=== PATIENT | female | born 1960 | race African-American/Black ===

== ENCOUNTER 2018-12-25 19:46 | Emergency (ER) | payer BC, OTHER ==
[2018-12-25 23:51] LABS: Urine Blood 2+ (NEG); Urine Glucose NEGATIVE (NEG); Urine Protein 1+ (NEG); Urine Specific Gravity >1.030 (1.005-1.030)
--- NOTE | 2018-12-26 00:23 | ER ---
Nurse's Notes [facility] Name: Gaby Avila Age: 58 yrs Sex: Female : 1960 Arrival Date: 12/25/2018 Time: 19:56 Bed 8 Private MD: Diagnosis: Influenza-like illness Presentation: 12/25 20:44 Presenting complaint: Patient states: Pt reports she is having, body aches, chills, ea runny nose and headache that started Sunday and progressively got worse. Transition of care: patient was not received from another setting of care. Onset of symptoms. Risk Assessment: Do you want to hurt yourself or someone else? Patient reports no desire to harm self or others. Initial Sepsis Screen: Does the patient meet any 2 criteria?. Initial Sepsis Screen: Does the patient have a suspected source of infection? No. Patient's initial sepsis screen is negative. Care prior to arrival: Theraflu and emergen C in the AM. 20:44 Method Of Arrival: Ambulatory ea 20:44 Acuity: ZAKIYA 4 ea Triage Assessment: 20:52 General: Appears uncomfortable, Behavior is calm, cooperative, appropriate for age. ea Pain: Complains of pain in body aches. Neuro: Level of Consciousness is awake, alert, obeys commands, Oriented to person, place, time, situation. Cardiovascular: Patient's skin is warm and dry. Respiratory: Airway is patent Respiratory effort is even, unlabored, Respiratory pattern is regular, symmetrical. Historical: - Allergies: 20:51 Codeine; ea 20:51 Heparin; ea 20:51 Hydrocodone-Acetaminophen; ea 20:51 Iodine; ea 20:51 PENICILLINS; ea 20:51 Soma; ea 20:51 Sulfa (Sulfonamide Antibiotics); ea 20:51 Talwin; ea 20:51 hydralazine; ea - Home Meds: 20:51 amlodipine 10 mg oral tab 1 tab once daily [Active]; quetiapine 200 mg oral tab ea [Active]; bumetanide 0.5 mg Oral tab 1 tab once daily [Active]; Xarelto oral oral [Active]; Belviq oral oral [Active]; montelukast 10 mg Oral tab 1 tab once daily [Active]; amlodipine oral [Active]; doxazosin 8 mg Oral tab 1 tab once daily [Active]; sotalol 80 mg Oral tab 1 tab 2 times per day [Active]; gabapentin 300 mg Oral cap 1 cap [Active]; - PMHx: 20:51 TIA; stroke; ADD/ADHD; carpal tunnel; ea - Immunization history:: Adult Immunizations up to date. - Social history:: Smoking status: Patient/guardian denies using tobacco. - Ebola Screening: : No symptoms or risks identified at this time. Screenin:12 Abuse screen: Denies threats or abuse. Nutritional screening: No deficits noted. tl2 Tuberculosis screening: No symptoms or risk factors identified. Fall Risk None identified. Assessment: 21:10 General: Appears in no apparent distress. comfortable, Behavior is calm, cooperative, tl2 appropriate for age. General: Reports chills for feeling ill for. Pain: Complains of pain in body aches. Neuro: Level of Consciousness is awake, alert, obeys commands, Oriented to person, place, time, situation. Cardiovascular: Denies chest pain. Respiratory: Reports cough that is Airway is patent Respiratory effort is even, unlabored, Respiratory pattern is regular, symmetrical. GI: No signs and/or symptoms were reported involving the gastrointestinal system. Derm: Skin is pink, warm \T\ dry. 22:10 Reassessment: Patient appears in no apparent distress at this time. Patient and/or tl2 family updated on plan of care and expected duration. Pain level reassessed. Patient is alert, oriented x 3, equal unlabored respirations, skin warm/dry/pink. 23:30 Reassessment: Patient appears in no apparent distress at this time. awaiting results tl2 and further orders. 12/26 00:45 Reassessment: Patient appears in no apparent distress at this time. Patient is alert, rr5 oriented x 3, equal unlabored respirations, skin warm/dry/pink. discharge instruction given and explained without complaints made. Vital Signs: 12/25 20:52 BP 162 / 96; Pulse 90; Resp 19; Temp 98.1; Pulse Ox 97% on R/A; Weight 117.03 kg; ea Height 5 ft. 4 in. (162.56 cm); 21:10 BP 137 / 87; Pulse 87; Resp 18; Pulse Ox 97% on R/A; tl2 22:14 BP 141 / 96; Pulse 77; Resp 18; Pulse Ox 96% on R/A; tl2 23:30 BP 129 / 69; Pulse 83; Resp 18; Pulse Ox 94% on R/A; tl2 12/26 00:37 BP 124 / 101; Pulse 97; Resp 18; Temp 99.1(O); Pulse Ox 97% on R/A; tl2 12/25 20:52 Body Mass Index 44.29 (117.03 kg, 162.56 cm) ED Course: 12/25 19:56 Patient arrived in ED. ds1 20:47 Triage completed. ea 21:12 Patient has correct armband on for positive identification. Bed in low position. Call tl2 light in reach. Side rails up X 1. 21:13 Arm band placed on right wrist. tl2 21:39 Igor Lewis MD is Attending Physician. ps1 23:20 Jason De León, RN is Primary Nurse. rr5 23:30 X-ray completed. Portable x-ray completed in exam room. Patient tolerated procedure kw well. 23:31 CXR XRAY In Process Unspecified. EDNJ 12/26 00:50 No provider procedures requiring assistance completed. Patient did not have IV access rr5 during this emergency room visit. Administered Medications: 00:37 Drug: TORadol 30 mg Route: IM; Site: left deltoid; tl2 00:50 Follow up: Response: No adverse reaction rr5 Outcome: 00:20 Discharge ordered by . ps1 00:50 Discharged to home ambulatory. rr5 00:50 Condition: stable 00:50 Discharge instructions given to patient, Instructed on discharge instructions, follow up and referral plans. medication usage, Demonstrated understanding of instructions, follow-up care, medications, Prescriptions given X 3. 00:50 Patient left the ED. rr5 Signatures: Dispatcher [employer] [facility] Tiffanie Thomason ds1 Amy Mcintyre Taylor RN RN tl2 Joanie Clarke RN RN ea Singer, Phillip, MD MD ps1 Jason De León, GARCÍA RN rr5
[2018-12-26] MEDS ORDERED: KETOROLAC 30 MG/ML INJ ONE (00:29)
[2018-12-26 00:39] LABS: Urine Bacteria 20-50 /HPF (<20); Urine Culture Reflex Order REFLEXED; Urine RBC <5 /HPF (NONE SEEN)
[2018-12-26 01:30] VITALS: BP 124/101; TEMP 99.1; O2SAT 97
--- NOTE | 2018-12-26 08:20 | RAD REPORT ---
EXAM DESCRIPTION: RAD - Chest Single View - 12/25/2018 11:33 pm CLINICAL HISTORY: Cough, flu-like symptoms COMPARISON: June 2017 TECHNIQUE: AP portable chest image was obtained 2331 hours . FINDINGS: No peripheral mass or consolidation. Lung markings are not substantially different from pr ior imaging. Slight hazy opacification lateral left base is favored to be soft tissue and portable im aging artifact rather than infiltrate. Failure and volume overload are not suspected. Heart and vasculature are normal. No measurable pleural effusion and no pneumothorax. No acute bony abnormality seen. No acute aortic findings suspected. IMPRESSION: No acute cardiopulmonary process. Slight hazy opacification lateral left base is favored to be soft tissue and portable imaging artifac t.
--- NOTE | 2019-01-04 18:56 | EDPHYS ---
Physician Documentation [facility] Name: Gaby Avila Age: 58 yrs Sex: Female : 1960 Arrival Date: 12/25/2018 Time: 19:56 Bed 8 Private MD: ED Physician Igor Lewis Historical: - Allergies: 12/25 20:51 Codeine; ea 20:51 Heparin; ea 20:51 Hydrocodone-Acetaminophen; ea 20:51 Iodine; ea 20:51 PENICILLINS; ea 20:51 Soma; ea 20:51 Sulfa (Sulfonamide Antibiotics); ea 20:51 Talwin; ea 20:51 hydralazine; ea - Home Meds: 20:51 amlodipine 10 mg oral tab 1 tab once daily [Active]; quetiapine 200 mg oral tab ea [Active]; bumetanide 0.5 mg Oral tab 1 tab once daily [Active]; Xarelto oral oral [Active]; Belviq oral oral [Active]; montelukast 10 mg Oral tab 1 tab once daily [Active]; amlodipine oral [Active]; doxazosin 8 mg Oral tab 1 tab once daily [Active]; sotalol 80 mg Oral tab 1 tab 2 times per day [Active]; gabapentin 300 mg Oral cap 1 cap [Active]; - PMHx: 20:51 TIA; stroke; ADD/ADHD; carpal tunnel; ea - Immunization history:: Adult Immunizations up to date. - Social history:: Smoking status: Patient/guardian denies using tobacco. - Ebola Screening: : No symptoms or risks identified at this time. Vital Signs: 20:52 BP 162 / 96; Pulse 90; Resp 19; Temp 98.1; Pulse Ox 97% on R/A; Weight 117.03 kg; ea Height 5 ft. 4 in. (162.56 cm); 21:10 BP 137 / 87; Pulse 87; Resp 18; Pulse Ox 97% on R/A; tl2 22:14 BP 141 / 96; Pulse 77; Resp 18; Pulse Ox 96% on R/A; tl2 23:30 BP 129 / 69; Pulse 83; Resp 18; Pulse Ox 94% on R/A; tl2 03/07 00:37 BP 124 / 101; Pulse 97; Resp 18; Temp 99.1(O); Pulse Ox 97% on R/A; tl2 12/25 20:52 Body Mass Index 44.29 (117.03 kg, 162.56 cm) ea MDM: 12/25 22:44 Patient medically screened. ps1 12/25 20:51 Order name: Flu; Complete Time: 21:40 ea 12/25 23:29 Order name: Urine Dipstick--Ancillary (enter results); Complete Time: 23:52 mw2 12/25 23:07 Order name: CXR XRAY ps1 12/26 00:05 Order name: Urine Microscopic Only; Complete Time: 00:43 bb 12/26 00:40 Order name: Urine Culture EDMS 12/25 23:07 Order name: Urine Dipstick-Ancillary (obtain specimen); Complete Time: 23:26 ps1 Administered Medications: 12/26 00:37 Drug: TORadol 30 mg Route: IM; Site: left deltoid; tl2 00:50 Follow up: Response: No adverse reaction rr5 Disposition: 12/26/18 00:20 Discharged to Home. Impression: Influenza-like illness. - Condition is Stable. - Discharge Instructions: Influenza, Adult. - Prescriptions for Anaprox DS 550 mg Oral Tablet - take 1 tablet by ORAL route every 12 hours As needed; 20 tablet. Medrol (Jae) 4 mg Oral Tablets, Dose Pack - take 1 tablet by ORAL route as directed - follow package instructions; 1 packet. Albuterol Sulfate 90 mcg/actuation - inhale 1-2 puff by INHALATION route every 4-6 hours; 1 Inhaler. - Medication Reconciliation Form, Thank You Letter, Antibiotic Education, Prescription Opioid Use form. - Follow up: Private Physician; Reason: Recheck today's complaints, Continuance of care, Re-evaluation by your physician. Follow up: Emergency Department; When: As needed; Reason: Worsening of condition. - Problem is new. - Symptoms are unchanged. Addendum: 01/04/2019 18:52 Addendum: 58 y/o F presenting with influenza-like illness. OOW for tamiflu. Onset 2 p s1 days. Has ALEXANDER/cough/bodyaches. ROS: fever, chills, ALEXANDER, body aches, cramps, PHY: ncat, PERRL,EOMI, RRR, CTAB, Abd SNT +bs, -pulse deficit: POC: home with symptomatic meds. Stable for DC. . Signatures: Dispatcher [employer] EDMS Ofelia Berry RN RN tl2 Joanie Clarke RN RN Igor Mane MD MD ps1 Jason De León RN RN rr5 Corrections: (The following items were deleted from the chart) 12/26 00:50 00:20 12/26/2018 00:20 Discharged to Home. Impression: Influenza-like illness. rr5 Condition is Stable. Forms are Medication Reconciliation Form, Thank You Letter, Antibiotic Education, Prescription Opioid Use. Follow up: Private Physician; Reason: Recheck today's complaints, Continuance of care, Re-evaluation by your physician. Follow up: Emergency Department; When: As needed; Reason: Worsening of condition. Problem is new. Symptoms are unchanged. ps1
== END 2018-12-26 00:50 | disposition home or self-care (01) ==
LOC: ER 19:46
DX: J11.1 Influenza due to unidentified influenza virus with other respiratory manifestations (principal); F90.9 Attention-deficit hyperactivity disorder, unspecified type; Z79.01 Long term (current) use of anticoagulants; Z88.0 Allergy status to penicillin; Z88.2 Allergy status to sulfonamides; Z88.5 Allergy status to narcotic agent; Z88.8 Allergy status to other drugs, medicaments and biological substances; Z86.73 Personal history of transient ischemic attack (TIA), and cerebral infarction without residual deficits
CPT/HCPCS: 71045; 81003; 81015; 87086; 87088; 87804; 96372; 99283

== ENCOUNTER 2020-12-07 16:45 | Emergency (ER) | payer BC ==
[2020-12-07] MEDS ORDERED: MORPHINE 4 MG/ML SYR ONE (21:49)
[2020-12-07] MEDS ORDERED: ONDANSETRON 4 MG (ODT) TAB ONE (21:49)
[2020-12-07] MEDS ORDERED: DIAZEPAM 5 MG TABLET ONE (21:49)
--- NOTE | 2020-12-07 22:34 | EDPHYS ---
Physician Documentation [facility] Name: Gaby Avila Age: 60 yrs Sex: Female : 1960 Arrival Date: 12/07/2020 Time: 16:53 Bed 25 Private MD: ED Physician Omer Johnson HPI: 12/07 21:38 This 60 yrs old Black Female presents to ER via Wheelchair with complaints of Fall jmm Injury. 21:38 Details of fall: The patient fell from an upright position. Onset: The symptoms/episode jmm began/occurred acutely, just prior to arrival. Associated injuries: The patient sustained injury to the head, neck injury, injury to the low back. This is a 60 year old female with a history of dm, atrial fib, htn that presents to the ED with complaints of neck pain, low back pain, upper back pain, left knee pain after a fall which occurred earlier today. Patient states she slipped her cane and fell backwards, hitting her head. Denies loc, denies direct injury to her right knee. . Historical: - Allergies: 17:02 Codeine; jd3 17:02 Heparin; jd3 17:02 Soma; jd3 17:02 Hydrocodone-Acetaminophen; jd3 17:02 PENICILLINS; jd3 17:02 HYDRALAZINE; jd3 17:02 Iodine; jd3 17:02 Sulfa (Sulfonamide Antibiotics); jd3 17:02 Talwin; jd3 - PMHx: 17:02 Diabetes - NIDDM; Atrial Fib; carpal tunnel; Glaucoma; Hypertension; Sleep Apnea; jd3 stroke; TIA; - PSHx: 17:02 Gastric Bypass; jd3 - Immunization history:: Adult Immunizations up to date. - Social history:: Smoking status: Patient denies any tobacco usage or history of. ROS: 21:38 Constitutional: Negative for fever, chills, and weight loss, Cardiovascular: Negative jmm for chest pain, palpitations, and edema, Respiratory: Negative for shortness of breath, cough, wheezing, and pleuritic chest pain. 21:38 Back: Positive for pain with movement. 21:38 MS/extremity: Positive for pain. 21:38 Neuro: Positive for headache. 21:38 All other systems are negative. Exam: 21:38 Head/Face: atraumatic. Eyes: EOMI, no conjunctival erythema appreciated ENT: Moist jmm Mucus Membranes Neck: Trachea midline, Supple 21:38 Cardiovascular: Regular rate and rhythm. No edema appreciated Respiratory: Normal respirations, no respiratory distress appreciated Abdomen/GI: Non distended, soft 21:38 Constitutional: The patient appears alert, awake, uncomfortable. 21:38 Back: left trapezius tenderness on palpation. 21:38 Back: mild lower lumbar back pain on palpation. 21:38 Musculoskeletal/extremity: left anterior knee pain on palpation, compartments are soft, NVI. 21:38 Skin: Appearance: Color: normal in color. 21:38 Neuro: Orientation: is normal, Mentation: is normal, Memory: is normal. Vital Signs: 17:03 BP 169 / 92; Pulse 82; Resp 17 S; Temp 98.5(TE); Pulse Ox 99% on R/A; Weight 119.29 kg jd3 (R); Height 5 ft. 4 in. (162.56 cm) (R); Pain 9/10; 21:48 BP 153 / 93; Pulse 89; Resp 16; Pulse Ox 96% on R/A; Pain 8/10; tl1 17:03 Body Mass Index 45.14 (119.29 kg, 162.56 cm) jd3 MDM: 21:22 Patient medically screened. annika 22:27 Data reviewed: vital signs, nurses notes. Counseling: I had a detailed discussion with annika the patient and/or guardian regarding: the historical points, exam findings, and any diagnostic results supporting the discharge/admit diagnosis, radiology results, the need for outpatient follow up, to return to the emergency department if symptoms worsen or persist or if there are any questions or concerns that arise at home. ED course: Imaging studies negative. Patient is advised to follow up with pcp and otherwise given strict return precautions. Patient understood and agrees with the plan of care. . 12/07 17:08 Order name: CT Lumbar Spine Wo Con jd3 12/07 17:08 Order name: Head C Spine MPR Wo Con CT jd3 Administered Medications: 21:41 Drug: Zofran (Ondansetron) 4 mg Route: PO; tl1 21:41 Drug: Valium 5 mg Route: PO; tl1 22:45 Follow up: Response: No adverse reaction; Marked relief of symptoms; Pain is decreased tl1 21:42 Drug: morphine 4 mg Route: IM; Site: left deltoid; tl1 22:46 Follow up: Response: No adverse reaction; Marked relief of symptoms; Pain is decreased tl1 Disposition: 12/07/20 22:33 Discharged to Home. Impression: Strain of muscle, fascia and tendon of lower back, Strain of muscle and tendon of back wall of thorax, Unspecified injury of head. - Condition is Stable. - Discharge Instructions: Back Pain, Adult, Head Injury, Adult, Thoracic Strain. - Prescriptions for orphenadrine citrate 100 mg Oral Tablet Sustained Release - take 1 tablet by ORAL route 2 times per day As needed; 20 tablet. - Medication Reconciliation Form, Thank You Letter, Antibiotic Education, Prescription Opioid Use form. - Follow up: Private Physician; When: 2 - 3 days; Reason: Recheck today's complaints, Continuance of care, Re-evaluation by your physician. Addendum: 12/09/2020 06:54 Co-signature as Attending Physician, Omer Johnson MD I agree with the assessment and c hoang plan of care. Signatures: Dispatcher [employer] Watson Riggs RN RN sg Anderson, Corey, MD MD cha Mickail, Joel, PA PA jmm Lasagna, Tonya RN RN tl1 Demar Liu RN RN jd3 Corrections: (The following items were deleted from the chart) 12/07 22:47 22:33 12/07/2020 22:33 Discharged to Home. Impression: Strain of muscle, fascia and sg tendon of lower back; Strain of muscle and tendon of back wall of thorax; Unspecified injury of head. Condition is Stable. Forms are Medication Reconciliation Form, Thank You Letter, Antibiotic Education, Prescription Opioid Use. Follow up: Private Physician; When: 2 - 3 days; Reason: Recheck today's complaints, Continuance of care, Re-evaluation by your physician. annika
--- NOTE | 2020-12-07 22:34 | ER ---
Nurse's Notes [facility] [place] Name: Gaby Avila Age: 60 yrs Sex: Female : 1960 Arrival Date: 12/07/2020 Time: 16:53 Bed 25 Private MD: Diagnosis: Strain of muscle, fascia and tendon of lower back;Strain of muscle and tendon of back wall of thorax;Unspecified injury of head Presentation: 12/07 17:00 Chief complaint: Patient states: "slipped and fell and hit my head and hurt my lower jd3 back. no LOC.". Coronavirus screen: At this time, the client does not indicate any symptoms associated with coronavirus-19. Ebola Screen: Patient negative for fever greater than or equal to 101.5 degrees Fahrenheit, and additional compatible Ebola Virus Disease symptoms. Initial Sepsis Screen: Does the patient meet any 2 criteria? No. Patient's initial sepsis screen is negative. Does the patient have a suspected source of infection? No. Patient's initial sepsis screen is negative. Risk Assessment: Do you want to hurt yourself or someone else? Patient reports no desire to harm self or others. Onset of symptoms was December 07, 2020. 17:00 Method Of Arrival: Wheelchair jd3 17:00 Acuity: ZAKIYA 3 jd3 Historical: - Allergies: 17:02 Codeine; jd3 17:02 Heparin; jd3 17:02 Soma; jd3 17:02 Hydrocodone-Acetaminophen; jd3 17:02 PENICILLINS; jd3 17:02 HYDRALAZINE; jd3 17:02 Iodine; jd3 17:02 Sulfa (Sulfonamide Antibiotics); jd3 17:02 Talwin; jd3 - PMHx: 17:02 Diabetes - NIDDM; Atrial Fib; carpal tunnel; Glaucoma; Hypertension; Sleep Apnea; jd3 stroke; TIA; - PSHx: 17:02 Gastric Bypass; jd3 - Immunization history:: Adult Immunizations up to date. - Social history:: Smoking status: Patient denies any tobacco usage or history of. Screenin:47 Abuse screen: Denies threats or abuse. Denies injuries from another. Nutritional tl1 screening: No deficits noted. Tuberculosis screening: No symptoms or risk factors identified. Fall Risk Fall in past 12 months (25 points). Assessment: 21:43 General: Appears in no apparent distress. uncomfortable, Behavior is calm, cooperative, tl1 appropriate for age. Pain: Complains of pain in scalp and back Pain currently is 9 out of 10 on a pain scale. Quality of pain is described as aching, throbbing. Neuro: Level of Consciousness is awake, alert, obeys commands, Oriented to person, place, time, situation. Cardiovascular: Reports None Denies chest pain. Respiratory: Airway is patent Trachea midline Respiratory effort is even, unlabored. GI: No signs and/or symptoms were reported involving the gastrointestinal system. Abdomen is non-distended. : No signs and/or symptoms were reported regarding the genitourinary system. EENT: No signs and/or symptoms were reported regarding the EENT system. Musculoskeletal: Reports pain in left side of the back of head, left occipital area, right side of the back of head and right occipital area. Vital Signs: 17:03 BP 169 / 92; Pulse 82; Resp 17 S; Temp 98.5(TE); Pulse Ox 99% on R/A; Weight 119.29 kg jd3 (R); Height 5 ft. 4 in. (162.56 cm) (R); Pain 9/10; 21:48 BP 153 / 93; Pulse 89; Resp 16; Pulse Ox 96% on R/A; Pain 8/10; tl1 17:03 Body Mass Index 45.14 (119.29 kg, 162.56 cm) jd3 ED Course: 16:53 Patient arrived in ED. ds1 17:00 Triage completed. jd3 17:03 Arm band placed on. jd3 17:42 Head C Spine MPR Wo Con CT In Process Unspecified. EDMS 17:45 CT Lumbar Spine Wo Con In Process Unspecified. EDMS 18:07 Dong Serrano PA is PHCP. jmm 18:07 Omer Johnson MD is Attending Physician. [facility] 21:43 Vicky Hylton, GARCÍA is Primary Nurse. tl1 21:48 No provider procedures requiring assistance completed. Patient did not have IV access tl1 during this emergency room visit. Administered Medications: 21:41 Drug: Zofran (Ondansetron) 4 mg Route: PO; tl1 21:41 Drug: Valium 5 mg Route: PO; tl1 22:45 Follow up: Response: No adverse reaction; Marked relief of symptoms; Pain is decreased tl1 21:42 Drug: morphine 4 mg Route: IM; Site: left deltoid; tl1 22:46 Follow up: Response: No adverse reaction; Marked relief of symptoms; Pain is decreased tl1 Outcome: 22:33 Discharge ordered by MD. roblero 22:46 Discharged to home via wheelchair. tl1 22:46 Condition: improved 22:46 Discharge instructions given to patient, Instructed on discharge instructions, follow up and referral plans. medication usage, Demonstrated understanding of instructions, follow-up care, medications, Prescriptions given X 1. 22:47 Patient left the ED. sg Signatures: Dispatcher [employer] EDWatson Heck RN RN sg Dong Serrano PA PA jmm Sanford, Demi ds1 Vicky Hylton RN RN tl1 Demar Liu RN RN jd3
[2020-12-07 23:07] VITALS: TEMP 98.5
[2020-12-07 23:08] VITALS: BP 153/93; O2SAT 96
--- NOTE | 2020-12-08 08:50 | RAD REPORT ---
EXAM DESCRIPTION: CTSpine Lumbar Wo Con12/07/2020 10:36 pm CLINICAL HISTORY: Back injury with back pain status post fall COMPARISON: None TECHNIQUE: Computed axial tomography lumbar spine was obtained with coronal and sagittal reconstruct ion. All CT scans are performed using dose optimization technique as appropriate and may include automated exposure control or mA/KV adjustment according to patient size. FINDINGS: No fracture noted. Post surgical changes involve the lower lumbar spine. Spondylosis most marked at L3-4 resulting in marked central spinal stenosis. Mild anterior subluxatio n of L3 on L4 IMPRESSION: Negative for a lumbar fracture. Mild anterior subluxation of L3 on L4 with spondylosis resulting in marked central spinal stenosis. I f clinically indicated further evaluation with MRI may be helpful
--- NOTE | 2020-12-08 11:51 | RAD REPORT ---
EXAM DESCRIPTION: CT Head C Spine MPR WO Con CLINICAL HISTORY: Fall with head and neck pain. COMPARISON: MRI head 2016. TECHNIQUE: Unenhanced computed axial tomography of the head obtained. This exam was performed according to our departmental dose-optimization program, which includes automated exposure control, adjustment of the mA and/or kV according to patient size and/or use of iterative reconstruction technique. FINDINGS: Beam hardening artifact limits evaluation of the base of the brain. An intracranial bleed is not seen. The ventricles are normal in caliber. No extra axial fluid collection is seen. Fluid within the sinuses/mastoids is not noted. A cervical fracture is not visualized. No dislocation. IMPRESSION: 1. No acute intracranial abnormality is seen. 2. A cervical fracture is not visualized. 3. If the patient continues to have symptoms to suggest intracranial/spinal cord pathology MRI would be recommended.
== END 2020-12-07 22:47 | disposition home or self-care (01) ==
LOC: ER 16:45
DX: S39.012A Strain of muscle, fascia and tendon of lower back, initial encounter (principal); S29.012A Strain of muscle and tendon of back wall of thorax, initial encounter; W01.0XXA Fall on same level from slipping, tripping and stumbling without subsequent striking against object, initial encounter; Z98.84 Bariatric surgery status; Z86.73 Personal history of transient ischemic attack (TIA), and cerebral infarction without residual deficits; E11.9 Type 2 diabetes mellitus without complications; I48.91 Unspecified atrial fibrillation; H40.9 Unspecified glaucoma; I10 Essential (primary) hypertension; G47.30 Sleep apnea, unspecified; G56.00 Carpal tunnel syndrome, unspecified upper limb
CPT/HCPCS: 70450; 72125; 72131; 96372; 99283

== ENCOUNTER 2022-12-15 08:42 | Emergency (ER) | payer BC ==
--- OUTSIDE RECORDS SUMMARY | 2022-12-15 08:46 | XMS REPORT | Continuity of Care Document ---
:1960 Author Organization [facility] t Address [address] [place] [address] [address] [place] [address] Care Team Providers Name Role Phone NIRMALA DIAZ Attending Clinician Unavailable MD NIRMALA DIAZ Attending Clinician Unavailable NIRMALA DIAZ Admitting Clinician Unavailable MD KRYSTAL SHELLEY Admitting Clinician Unavailable Problems This patient has no known problems. Allergies, Adverse Reactions, Alerts This patient has no known allergies or adverse reactions. Medications This patient has no known medications. Procedures This patient has no known procedures. Encounters Start End Encounter Admission Attending Care Care Encounter Source Date/Time Date/Time Type Type Clinicians Facility Department ID 2020-11-08 2020-11-11 Inpatient [facility] [id number] [address] 00:00:00 00:00:00 NIRMALA [address] 2020-11-03 2020-11-03 Outpatient [facility] [id number] [address] 00:00:00 00:00:00 NIRMALA [address] 2020-11-03 2020-11-03 Outpatient [facility] [id number] [address] 00:00:00 00:00:00 NIRMAL[address] Results Test Description Test Time Test Comments Results Result Comments Source SARS-CoV-2 (COVID-19) RNA [Presence] in Respiratory sp ecimen by 2020-11-03 21:07:49 TUNG with probe detection Test Item Value Reference Range Interpretation Comme nts SARS-CoV-2 (COVID-19) RNA [Presence] in Respiratory Not detected No t-Detected specimen by TUNG with probe detection (test code = 88235-2) [id number]
--- NOTE | 2022-12-15 09:52 | RAD REPORT ---
EXAM DESCRIPTION: CT - CTHCSPWOC - 12/15/2022 9:28 am CLINICAL HISTORY: Fall last night. Head trauma. Complains of lower back pain. PAIN COMPARISON: Head C Spine Mpr Wo Con dated 12/07/2020; SOFT TISSUE NECK W O CONTRAST dated 12/25/2007 TECHNIQUE: Axial thin cut noncontrast CT images of the head were obtained. Axial thin cut noncontrast CT images of the cervical spine were obtained. Multiplanar reformatted images were generated and reviewed. All CT scans are performed using dose optimization technique as appropriate and may include automated exposure control or mA/KV adjustment according to patient size. FINDINGS: CT HEAD WITHOUT CONTRAST: No acute hemorrhage, hydrocephalus or extra-axial collection is identified.No areas of brain edema or midline shift. The paranasal sinuses and mastoids are clear.The calvarium is intact. CT CERVICAL SPINE WITHOUT CONTRAST: No fracture or subluxation.No prevertebral soft tissues swelling is identified. Mild multilevel dege nerative changes without significant bony canal or foraminal stenosis. IMPRESSION: No acute traumatic intracranial or cervical spine findings.
--- NOTE | 2022-12-15 11:06 | RAD REPORT ---
EXAM DESCRIPTION: RAD - Lumbar Spine 3 Views - 12/15/2022 9:48 am COMPARISON: None. FINDINGS: A three-view lumbar spine examination was performed. Lumbar bodies are normal in height. Grade 1 anterolisthesis of L3 over L4, measuring approximately 4 millimeter. Subchorionic posterior decompression noted opposite L4, with sequelae of bone graft fusio n. [id number] degenerative changes with disc height loss at L4-5. No fracture or acute bony pro cess seen. No other significant findings. IMPRESSION: No acute abnormalities of the lumbar spine. Degenerative and postoperative changes as ab ove.
--- NOTE | 2022-12-15 11:07 | RAD REPORT ---
EXAM DESCRIPTION: Shoulder Right 2 View - 12/15/2022 9:48 am CLINICAL HISTORY: Pain. Fall COMPARISON: None. TECHNIQUE: Internal and external rotation views of the right shoulder were obtained. FINDINGS: There is no fracture or dislocation. No acute or suspicious findings. Rotator cuff anchors in place. Mild AC joint degenerative changes. IMPRESSION: No acute osseous abnormality of the right shoulder, findings as above.
--- NOTE | 2022-12-15 11:18 | ER ---
Nurse's Notes [facility] Name: Gaby Avila Age: 62 yrs Sex: Female : 1960 Arrival Date: 12/15/2022 Time: 08:47 Bed 16 Private MD: Heriberto Joshi T Diagnosis: Fall on same level from slipping, tripping and stumbling with subsequent striking against object;Unspecified injury of head, initial encounter;Pain in right shoulder;Cervicalgia;Low back pain Presentation: 12/15 09:16 Chief complaint: Low back pain after fall from standing last night. Pt reports legs hb gave out causing her to fall and hit head on coffee table. Unknown LOC. Care prior to arrival: None. Mechanism of Injury: Fall from standing position. Trauma event details: Injury occurred in the [facility], Injury occurred: at home. Injury occurred: December 14, 2022. 09:16 Method Of Arrival: Wheelchair hb 09:16 Acuity: ZAKIYA 4 hb 09:17 Coronavirus screen: At this time, the client does not indicate any symptoms associated hb with coronavirus-19. Ebola Screen: No symptoms or risks identified at this time. Initial Sepsis Screen: Does the patient meet any 2 criteria? No. Patient's initial sepsis screen is negative. Does the patient have a suspected source of infection? No. Patient's initial sepsis screen is negative. Risk Assessment: Do you want to hurt yourself or someone else? Patient reports no desire to harm self or others. Onset of symptoms was December 14, 2022. Trauma Activation: Not Applicable Physician: ED Physician; Name: ; Notified At: ; Arrived At: Physician: General Surgeon; Name: ; Notified At: ; Arrived At: Physician: Radiology; Name: ; Notified At: ; Arrived At: Physician: Respiratory; Name: ; Notified At: ; Arrived At: Physician: Lab; Name: ; Notified At: ; Arrived At: Historical: - Allergies: 09:18 Codeine; hb 09:18 Heparin; hb 09:18 HYDRALAZINE; hb 09:18 Hydrocodone-Acetaminophen; hb 09:18 Iodine; hb 09:18 PENICILLINS; hb 09:18 Soma; hb 09:18 Sulfa (Sulfonamide Antibiotics); hb 09:18 Talwin; hb - PMHx: 09:18 ADD/ADHD; Atrial Fib; carpal tunnel; Diabetes - NIDDM; Hypertension; Glaucoma; Sleep hb Apnea; stroke; TIA; - Immunization history:: Adult Immunizations up to date. - Social history:: Smoking status: Patient denies any tobacco usage or history of. - Immunization history: Last tetanus immunization: unknown. Screenin:30 [facility] ED Fall Risk Assessment (Adult) History of falling in the last 3 months, db including since admission Yes- single mechanical fall (1 pt) Confusion or Disorientation No (0 pts) Intoxicated or Sedated No (0 pts) Impaired Gait Yes (1 pt) Mobility Assist Device Used Yes (1 pt) Altered Elimination No (0 pt) Score/Fall Risk Level 3 or more points = High Risk Oriented to surroundings, Maintained a safe environment, Educated pt \T\ family on fall prevention, incl call for assistance when getting out of bed. Abuse screen: Denies threats or abuse. Denies injuries from another. Nutritional screening: No deficits noted. Tuberculosis screening: No symptoms or risk factors identified. Primary Survey: 10:00 NO uncontrolled hemorrhage observed. A: The client is awake and alert. The airway is db patent. The client is alert. Airway: patent, No supplemental oxygen in use on arrival. Breathing/Chest: Spontaneous respiratory effort, equal unlabored respirations, breath sounds clear bilaterally, regular pattern, symmetrical chest rise and fall. Respiratory effort: spontaneous, unlabored, Breath sounds: clear, bilaterally. Respiratory pattern:. Circulation: No external hemorrhage present. Regular and strong central pulse, skin warm/dry/normal color. Disability Pupils are equal, round, reactive to light and accommodation. Client is alert. Exposure/Environment: A warming method has been applied: A warm blanket has been provided to the patient. Reassessment Alertness and Airway:. Reassessment Breathing: Spontaneous respiratory effort, equal unlabored respirations, breath sounds clear bilaterally, regular pattern with symmetrical chest rise and fall. Respiratory effort Spontaneous Breath sounds Clear Respiratory pattern Regular Circulation: No external hemorrhage noted. Regular and strong central pulse, skin warm/dry/normal color. Disability: Pupils Pupils are equal, round, reactive to light and accomodation. Alert. Assessment: 09:45 Reassessment: Patient appears in no apparent distress at this time. Patient and/or db family updated on plan of care and expected duration. Pain level reassessed. Patient is alert, oriented x 3, equal unlabored respirations, skin warm/dry/pink. patient complains of fall and back and leg pain states has knee pain as well. General: Appears in no apparent distress. comfortable, Behavior is calm, cooperative. Pain: Complains of pain in right arm and anterior aspect of right shoulder and lumbar area. Neuro: No deficits noted. Level of Consciousness is awake, alert, obeys commands, Oriented to person, place, time, situation, Speech is normal. Respiratory: No deficits noted. GI: No deficits noted. No signs and/or symptoms were reported involving the gastrointestinal system. 11:36 Reassessment: Patient appears in no apparent distress at this time. db Vital Signs: 09:17 BP 127 / 102; Pulse 71; Resp 16; Temp 98.9(O); Pulse Ox 100% ; Weight 78.47 kg; Height hb 5 ft. 4 in. (162.56 cm); Pain 10/10; 11:37 BP 136 / 98; Pulse 72; Resp 16; Pulse Ox 100% on R/A; db 09:17 Body Mass Index 29.70 (78.47 kg, 162.56 cm) hb [place] Coma Score: 10:00 Eye Response: spontaneous(4). Verbal Response: oriented(5). Motor Response: obeys db commands(6). Total: 15. Trauma Score (Adult): 10:00 Eye Response: spontaneous(1); Verbal Response: oriented(1); Motor Response: obeys db commands(2); Systolic BP: > 89 mm Hg(4); Respiratory Rate: 10 to 29 per min(4); [place] Score: 15; Trauma Score: 12 ED Course: 08:47 Patient arrived in ED. rg4 08:47 Heriberto Joshi MD is Private Physician. rg4 08:54 Batsheva Tam FNP-C is [facility]. kb 08:54 Omer Johnson MD is Attending Physician. kb 09:17 Triage completed. hb 09:19 Arm band placed on. hb 09:30 CT Head C Spine In Process Unspecified. EDMS 09:50 Shoulder Right (2 View) XRAY In Process Unspecified. EDMS 09:50 Lumbar Spine (3 Views) XRAY In Process Unspecified. EDMS 10:00 Patient maintains SpO2 saturation greater than 95% on room air. db 10:00 Thermoregulation: warm blanket given to patient. db 10:30 Patient has correct armband on for positive identification. Bed in low position. Call db light in reach. Side rails up X 1. 10:30 Patient did not have IV access during this emergency room visit. db 10:36 Kelle Salguero, RN is Primary Nurse. db 11:43 No provider procedures requiring assistance completed. db Administered Medications: 11:25 Drug: Ketorolac 30 mg Route: IM; Site: left vastus lateralis; db 11:43 Follow up: Response: No adverse reaction db Medication: 11:37 VIS not applicable for this client. db Intake: 10:00 PO: 0ml; Total: 0ml. db Outcome: 10:00 Patient's length of stay in the Emergency Department was greater than 2 hours. db 11:17 Discharge ordered by . kb 11:39 Discharged to home via wheelchair, with family. db 11:39 Condition: stable 11:39 Discharge instructions given to patient, family, Instructed on discharge instructions, follow up and referral plans. Prescriptions given X 1. 11:43 Patient left the ED. db Signatures: Dispatcher [employer] EDPR Batsheva Tam, DOCKING PILOT-C DOCKING PILOT-Amber Kong RN RN Deidre Veronica rg4 Kelle Salguero, RN RN db Corrections: (The following items were deleted from the chart) 09:20 09:16 Acuity: ZAKIYA 3 hb hb 11:43 10:30 No provider procedures requiring assistance completed. db db
--- NOTE | 2022-12-15 11:18 | EDPHYS ---
Physician Documentation [facility] Name: Gaby Avila Age: 62 yrs Sex: Female : 1960 Arrival Date: 12/15/2022 Time: 08:47 Bed 16 Private MD: Heriberto Joshi T ED Physician Omer Johnson HPI: 12/15 09:48 This 62 yrs old Black Female presents to ER via Wheelchair with complaints of Fall kb Injury, Back Pain. 09:48 Details of fall: The patient fell from an upright position, while walking. Onset: The kb symptoms/episode began/occurred last night, at 22:30. Associated injuries: The patient sustained injury to the head, pain, neck injury, pain, pain with movement, injury to the low back, pain, pain with movement. Severity of symptoms: At their worst the symptoms were moderate, in the emergency department the symptoms are unchanged. The patient has not experienced similar symptoms in the past. The patient has not recently seen a physician. Historical: - Allergies: 09:18 Codeine; hb 09:18 Heparin; hb 09:18 HYDRALAZINE; hb 09:18 Hydrocodone-Acetaminophen; hb 09:18 Iodine; hb 09:18 PENICILLINS; hb 09:18 Soma; hb 09:18 Sulfa (Sulfonamide Antibiotics); hb 09:18 [place]; hb - PMHx: 09:18 ADD/ADHD; Atrial Fib; carpal tunnel; Diabetes - NIDDM; Hypertension; Glaucoma; Sleep hb Apnea; stroke; TIA; - Immunization history:: Adult Immunizations up to date. - Social history:: Smoking status: Patient denies any tobacco usage or history of. - Immunization history: Last tetanus immunization: unknown. ROS: 09:43 Constitutional: Negative for fever, chills, and weight loss. kb 09:43 Neck: Positive for pain with movement, pain at rest. 09:43 Back: Positive for pain at rest, pain with movement, of the lumbar area. 09:43 MS/extremity: Positive for pain, of the anterior aspect of right shoulder. 09:43 Neuro: Positive for headache. 09:43 All other systems are negative. Exam: 09:43 Constitutional: This is a well developed, well nourished patient who is awake, alert, kb and in no acute distress. Head/Face: Normocephalic, atraumatic. ENT: Moist Mucous membranes Cardiovascular: Regular rate and rhythm with a normal S1 and S2. No gallops, murmurs, or rubs. No pulse deficits. Respiratory: Respirations even and unlabored. No increased work of breathing. Talking in full sentences Abdomen/GI: Soft, non-tender. No distention Skin: Warm, dry with normal turgor. Normal color. Neuro: Awake and alert, GCS 15, oriented to person, place, time, and situation. Moves all extremities. Normal gait. Psych: Awake, alert, with orientation to person, place and time. Behavior, mood, and affect are within normal limits. 09:43 Neck: External neck: is normal, C-spine: vertebral tenderness, that is mild. 09:43 Back: pain, that is moderate, of the lumbar area, ROM is normal, normal spinal alignment noted. 09:43 Musculoskeletal/extremity: Extremities: grossly normal except: noted in the anterior aspect of right shoulder: pain, tenderness, ROM: intact in all extremities, Circulation is intact in all extremities. Sensation intact. Vital Signs: 09:17 BP 127 / 102; Pulse 71; Resp 16; Temp 98.9(O); Pulse Ox 100% ; Weight 78.47 kg; Height hb 5 ft. 4 in. (162.56 cm); Pain 10/10; 11:37 BP 136 / 98; Pulse 72; Resp 16; Pulse Ox 100% on R/A; db 09:17 Body Mass Index 29.70 (78.47 kg, 162.56 cm) hb [place] Coma Score: 10:00 Eye Response: spontaneous(4). Verbal Response: oriented(5). Motor Response: obeys db commands(6). Total: 15. Trauma Score (Adult): 10:00 Eye Response: spontaneous(1); Verbal Response: oriented(1); Motor Response: obeys db commands(2); Systolic BP: > 89 mm Hg(4); Respiratory Rate: 10 to 29 per min(4); [place] Score: 15; Trauma Score: 12 MDM: 08:54 Patient medically screened. kb 09:43 Data reviewed: vital signs, nurses notes. kb 09:47 Differential diagnosis: closed head injury, contusion, fracture, strain. kb 11:15 Independent interpretation of the following test(s) in the Emergency Department X-Ray: [email or web address] My interpretation is x-ray lumbar spine and shoulder reviewed by me. No acute fracture. Counseling: I had a detailed discussion with the patient and/or guardian regarding: the historical points, exam findings, and any diagnostic results supporting the discharge/admit diagnosis, radiology results, the need for outpatient follow up, a family practitioner, to return to the emergency department if symptoms worsen or persist or if there are any questions or concerns that arise at home. 12:12 I considered the following discharge prescriptions or medication management in the emergency department I discussed and recommended Over The Counter medications, Antibiotics: At this time antibiotics are not recommended, Pain Medications: At this time, prescription pain medications are not recommended. ED course: Patient is a 62-year-old female who presents for right shoulder, neck and low back pain after a fall that occurred at 2230 last night. Reports she hit her head on the coffee table and unknown LOC. On exam patient has tenderness to right shoulder, C6-C7, lumbar spine. CT head C-spine, x-ray lumbar spine and x-ray right shoulder all without acute findings. Patient educated on use of [id number] analgesics. Norflex prescribed. Patient will follow-up with PCP. 12/15 08:55 Order name: CT Head C Spine; Complete Time: 09:55 kb 12/15 08:55 Order name: Shoulder Right (2 View) XRAY; Complete Time: 11:11 kb 12/15 08:55 Order name: Lumbar Spine (3 Views) XRAY; Complete Time: 11:11 kb Administered Medications: 11:25 Drug: Ketorolac 30 mg Route: IM; Site: left vastus lateralis; db 11:43 Follow up: Response: No adverse reaction db Disposition Summary: 12/15/22 11:17 Discharge Ordered Location: Home kb Condition: Stable kb Diagnosis - Fall on same level from slipping, tripping and stumbling with subsequent striking kb against object - Unspecified injury of head, initial encounter kb - Pain in right shoulder kb - Cervicalgia kb - Low back pain kb Followup: kb - With: Emergency Department - When: As needed - Reason: Worsening of condition Followup: kb - With: Private Physician - When: 2 - 3 days - Reason: Recheck today's complaints, Continuance of care, Re-evaluation by your physician Discharge Instructions: - Discharge Summary Sheet kb - Musculoskeletal Pain kb Forms: - Medication Reconciliation Form kb - Thank You Letter kb - Antibiotic Education kb - Prescription Opioid Use kb Prescriptions: - orphenadrine citrate 100 mg Oral Tablet Sustained Release - take 1 tablet by ORAL route 2 times per day As needed; 20 tablet; Refills: 0, kb Product Selection Permitted Signatures: Dispatcher [employer] Batsheva Cleaning, ANAC Amber Parra RN RN Kelle Salguero RN RN db
[2022-12-15] MEDS ORDERED: KETOROLAC 30 MG/ML INJ ONE (11:27)
[2022-12-15 11:57] VITALS: TEMP 98.9; O2SAT 100
[2022-12-15 11:58] VITALS: BP 136/98
== END 2022-12-15 11:43 | disposition home or self-care (01) ==
LOC: ER 08:42
DX: S09.90XA Unspecified injury of head, initial encounter (principal); M25.511 Pain in right shoulder; M54.2 Cervicalgia; M54.50 Low back pain, unspecified; W01.10XA Fall on same level from slipping, tripping and stumbling with subsequent striking against unspecified object, initial encounter; I10 Essential (primary) hypertension; Z88.0 Allergy status to penicillin; Z88.2 Allergy status to sulfonamides; Z88.5 Allergy status to narcotic agent; Z88.8 Allergy status to other drugs, medicaments and biological substances; Z91.048 Other nonmedicinal substance allergy status
CPT/HCPCS: 70450; 72100; 72125; 96372; 99284

== ENCOUNTER 2024-04-14 13:17 | Inpatient (IN) | payer BC ==
[2024-04-14] MEDS ORDERED: ASPIRIN 81 MG CHEWABLE TABLET ONE (13:54)
[2024-04-14] MEDS ORDERED: MECLIZINE HCL 12.5 MG TAB ONE (13:54)
[2024-04-14] MEDS ORDERED: NITROGLYCERIN 0.4 MG/TAB SL ONE (13:54)
[2024-04-14 13:58] LABS: Absolute Eosinophils 0.1 K/uL (0-0.5); Absolute Lymphocytes (CBC) 0.7 K/uL (0.7-4.9); Absolute Monocytes 0.8 K/uL (0.1-1.3); Basophils % 0.5 % (0-1.3); Eosinophils % 1.8 % (0-4.4); Hemoglobin 11.3 g/dL (12.0-15.0); Lymphocytes % 10.2 % (15.3-44.8); MCH 28.2 pg (27.0-35.0); MCHC 32.2 g/dL (32.0-36.0); MCV 87.7 fL (80-100); Monocytes % 12.3 % (3.3-12.3); Neutrophils % 75.2 % (41.7-73.7); Platelets 218 thou/uL (152-406)
[2024-04-14 14:18] LABS: ALT/SGPT 38 U/L (13-56); AST/SGOT 23 U/L (15-37); Albumin 3.2 g/dL (3.4-5.0); Albumin/Globulin Ratio 0.8 (1.1-1.8); Alkaline Phosphatase 64 U/L (45-117); Anion Gap 5.3 mEq/L (5.0-15.0); BUN Blood Urea Nitrogen 23 mg/dL (7-18); Bicarbonate 30 mEq/L (21-32); Bilirubin Direct < 0.2 mg/dL (0-0.2); Bilirubin Indirect, Calculated 0.2 mg/dL (0.2-0.8); Bilirubin Total 0.4 mg/dL (0.2-1.0); Globulin 4.1 g/dL (2.3-3.5); Glomerular Filtration Rate 48 ml/min (=/>90); Glucose Level 88 mg/dL (74-106); Magnesium 1.4 mg/dL (1.6-2.4); NT PRO-BNP 260 pg/mL (<125); Potassium 3.3 mEq/L (3.5-5.1); Protein, Total 7.3 g/dL (6.4-8.2); Sodium Level 141 mEq/L (136-145); Troponin High Sensitivity 5.3 pg/mL (<58.9)
[2024-04-14 14:41] LABS: INFLUENZA A NAA NEGATIVE (NEGATIVE)
--- NOTE | 2024-04-14 14:52 | RAD REPORT ---
EXAM DESCRIPTION: Benito Single View04/14/2024 2:16 pm CLINICAL HISTORY: Chest pain COMPARISON: 2018 FINDINGS: The lungs appear clear of acute infiltrate. The heart is mildly enlarged IMPRESSION: No acute abnormalities displayed
[2024-04-14 14:57] LABS: SARS-COV-2 RT PCR POSITIVE (NEGATIVE)
--- NOTE | 2024-04-14 16:05 | ER ---
Nurse's Notes [facility] Name: Gaby Avila Age: 63 yrs Sex: Female : 1960 Arrival Date: 04/14/2024 Time: 13:17 Bed 17 Private MD: Diagnosis: Chest pain, unspecified;Covid 19 Presentation: 04/14 13:29 Chief complaint: Patient states: she started having cough, sore throat and feeling ap3 feverish last night. patient states she woke up hot and sweaty this morning and she never feels that way. patient also reports that while laying down she started having left upper chest pain that she rates a 8/10 on the pain scale. Coronavirus screen: At this time, the client does not indicate any symptoms associated with coronavirus-19. Ebola Screen: No symptoms or risks identified at this time. Initial Sepsis Screen: Does the patient meet any 2 criteria? No. Patient's initial sepsis screen is negative. Does the patient have a suspected source of infection? No. Patient's initial sepsis screen is negative. Risk Assessment: Do you want to hurt yourself or someone else? Patient reports no desire to harm self or others. Onset of symptoms was April 13, 2024. 13:29 Method Of Arrival: Wheelchair ap3 13:29 Acuity: ZAKIYA 2 ap3 Triage Assessment: 13:44 General: Appears ill, Behavior is calm, cooperative, appropriate for age, Reports ap3 chills for fever for feeling ill for fatigue for. Pain: Complains of pain in anterior aspect of left upper chest Pain currently is 8 out of 10 on a pain scale. Quality of pain is described as pressure. Neuro: Level of Consciousness is awake, alert, obeys commands, Oriented to person, place, time, situation, Appropriate for age. Cardiovascular: Patient's skin is warm and dry. Respiratory: Airway is patent Respiratory effort is even, unlabored, Respiratory pattern is regular, symmetrical. Historical: - Allergies: 13:43 Codeine; ap3 13:43 Heparin; ap3 13:43 HYDRALAZINE; ap3 13:43 Hydrocodone-Acetaminophen; ap3 13:43 Iodine; ap3 13:43 PENICILLINS; ap3 13:43 Soma; ap3 13:43 Sulfa (Sulfonamide Antibiotics); ap3 13:43 Talwin; ap3 - PMHx: 13:43 ADD/ADHD; Atrial Fib; carpal tunnel; Diabetes - NIDDM; Glaucoma; Hypertension; Sleep ap3 Apnea; stroke; TIA; - Immunization history:: Client reports receiving the 2nd dose of the Covid vaccine. - Infectious Disease History:: Denies. - Social history:: Smoking status: Patient denies any tobacco usage or history of. - Family history:: not pertinent. Screenin:30 [facility] ED Fall Risk Assessment (Adult) History of falling in the last 3 months, me1 including since admission No falls in past 3 months (0 pts) Confusion or Disorientation No (0 pts) Intoxicated or Sedated No (0 pts) Impaired Gait No (0 pts) Mobility Assist Device Used No (0 pt) Altered Elimination No (0 pt) Score/Fall Risk Level 0 - 2 = Low Risk Maintained a safe environment, Provided non-skid footwear, Hourly rounding (assess needs \T\ fall precautionary measures) done. 13:45 Abuse screen: Denies threats or abuse. Nutritional screening: No deficits noted. ap3 Tuberculosis screening: No symptoms or risk factors identified. Assessment: 13:30 General: Appears uncomfortable, ill, well groomed, well developed, well nourished, me1 Behavior is calm, cooperative, appropriate for age, Reports she started having cough, sore throat and feeling feverish last night. patient states she woke up hot and sweaty this morning and she never feels that way. patient also reports that while laying down she started having left upper chest pain that she rates a 8/10 on the pain scale. Pain: Complains of pain in chest and anterior aspect of left upper chest Pain does not radiate. Pain currently is 8 out of 10 on a pain scale. Quality of pain is described as pressure, Pain began suddenly, 4 hours ago. Is continuous. Neuro: Level of Consciousness is awake, alert, obeys commands, Oriented to person, place, time, situation, Appropriate for age. Cardiovascular: Capillary refill < 3 seconds Patient's skin is warm and dry. Cardiovascular: Reports chest pain, lightheadedness. Respiratory: Airway is patent Respiratory effort is even, unlabored, Respiratory pattern is regular, symmetrical. Respiratory: Reports cough that is non-productive. GI: No signs and/or symptoms were reported involving the gastrointestinal system. : No signs and/or symptoms were reported regarding the genitourinary system. EENT: Reports pain in throat when swallowing. Derm: Skin is intact, is healthy with good turgor, Skin is pink, warm \T\ dry. Musculoskeletal: No signs and/or symptoms reported regarding the musculoskeletal system. Vital Signs: 13:29 BP 157 / 105; Pulse 84; Resp 17; Temp 99.8(O); Pulse Ox 99% on R/A; Weight 74.84 kg; ap3 Height 5 ft. 4 in. ; Pain 8/10; 13:45 BP 142 / 95; Pulse 81; Resp 18; Pulse Ox 98% on R/A; me1 14:00 BP 147 / 106; Pulse 84; Resp 19; Pulse Ox 99% on R/A; me1 15:00 BP 139 / 105; Pulse 78; Resp 19; Pulse Ox 98% on R/A; me1 16:00 BP 139 / 96; Pulse 79; Resp 18; Pulse Ox 99% on R/A; me1 17:00 BP 133 / 98; Pulse 82; Resp 21; Pulse Ox 99% on R/A; me1 13:29 Body Mass Index 28.32 (74.84 kg, 162.56 cm) ap3 13:29 Pain Scale: Adult ap3 ED Course: 13:18 Patient arrived in ED. mr 13:19 Odilon Raymond MD is Attending Physician. rt 13:24 Jessica Gonzalez, RN is Primary Nurse. me1 13:30 No provider procedures requiring assistance completed. me1 13:30 Patient has correct armband on for positive identification. Bed in low position. Call tn1 light in reach. Side rails up X2. Provided Education on: POC. Verbalized understanding. . 13:38 EKG done, by ED staff, reviewed by Odilon Raymond MD. me1 13:43 Triage completed. ap3 13:45 O2 via room air. ap3 13:45 Arm band placed on right wrist. ap3 13:45 Client placed on continuous cardiac and pulse oximetry monitoring. NIBP monitoring ap3 applied. double end sewer on. Pulse ox on. NIBP on. 13:50 Basic Metabolic Panel Sent. me1 13:50 CBC with Diff Sent. me1 13:50 LFT's Sent. me1 13:50 Magnesium Sent. me1 13:50 NT PRO-BNP Sent. me1 13:50 Troponin HS Sent. me1 13:50 Initial lab(s) drawn, by me, sent to lab. COVID swab sent to lab. Flu and/or RSV swab me1 sent to lab. Inserted saline lock: 22 gauge in right antecubital area, using aseptic technique. 14:18 XRAY Chest (1 view) In Process Unspecified. EDMS 16:04 Silvio Villeda MD is Hospitalizing Provider. rt 17:05 Patient admitted, IV remains in place. me1 Administered Medications: 13:58 Drug: Aspirin PO Chewable Tablet 324 mg PO once; 81 mg tablets x 4 Route: PO; me1 17:01 Follow up: Response: No adverse reaction me1 13:58 Drug: Nitroglycerin Sublingual 0.4 mg Sublingual once; every five minute if needed x3 me1 Route: Sublingual; 17:02 Follow up: Response: No adverse reaction; Pain is unchanged, physician notified me1 13:58 Drug: Meclizine PO 50 mg PO once Route: PO; me1 17:02 Follow up: Response: No adverse reaction me1 Medication: 13:30 VIS not applicable for this client. me1 Outcome: 16:05 Decision to Hospitalize by Provider. rt 17:05 Condition: stable me1 17:05 Instructed on the need for admit, 17:11 Admitted to Med/surg accompanied by tech, room 204, with chart, Report called to faxed tn1 report, receipt confirmed by Ivelisse 17:34 Patient left the ED. 6 Signatures: Dispatcher [employer] EDWY LinaresLeana, Reg Reg mr Mandy Cardoza RN RN ap3 Odilon Raymond MD MD rt Maren Sánchez bc6 Jessica oGnzalez RN RN me1 Corrections: (The following items were deleted from the chart) 13:58 13:29 Chief complaint: Patient states: she started having cough, sore throat and me1 feeling feverish last night. patient states she woke up hot and sweaty this morning and she never feels that way. patient also reports that while laying down she started having left upper chest pain that she rates a 8/10 on the pain scale ap3 17:01 17:01 Nitroglycerin Sublingual 0.4 mg Sublingual me1 me1 17:12 17:05 Admitted to Med/surg accompanied by tech, via wheelchair, room 204, with chart, me1 Report called to faxed report, receipt confirmed with Christina. me1
--- NOTE | 2024-04-14 16:05 | EDPHYS ---
Physician Documentation [facility] Name: Gaby Avila Age: 63 yrs Sex: Female : 1960 Arrival Date: 04/14/2024 Time: 13:17 Bed 17 Private MD: ED Physician Odilon Raymond HPI: 04/14 17:23 This 63 yrs old Black Female presents to ER via Wheelchair with complaints of Chest rt Pain. 17:23 Patient presents to the ED with chest pain, "feeling feverish" patient states that the rt pain is substernal, radiates to the jaw, left arm. Reports a dizziness that she describes as spinning. Denies other acute complaints at this time, symptoms are moderate in severity, no other aggravating or alleviating factors.. Historical: - Allergies: 13:43 Codeine; ap3 13:43 Heparin; ap3 13:43 HYDRALAZINE; ap3 13:43 Hydrocodone-Acetaminophen; ap3 13:43 Iodine; ap3 13:43 PENICILLINS; ap3 13:43 Soma; ap3 13:43 Sulfa (Sulfonamide Antibiotics); ap3 13:43 Talwin; ap3 - PMHx: 13:43 ADD/ADHD; Atrial Fib; carpal tunnel; Diabetes - NIDDM; Glaucoma; Hypertension; Sleep ap3 Apnea; stroke; TIA; - Immunization history:: Client reports receiving the 2nd dose of the Covid vaccine. - Infectious Disease History:: Denies. - Social history:: Smoking status: Patient denies any tobacco usage or history of. - Family history:: not pertinent. ROS: 17:23 Respiratory: Negative for shortness of breath, cough, wheezing, and pleuritic chest rt pain, Abdomen/GI: Negative for abdominal pain, nausea, vomiting, diarrhea, and constipation, MS/Extremity: Negative for injury and deformity, Skin: Negative for injury, rash, and discoloration, 17:23 Constitutional: Positive for chills, fever, 17:23 Cardiovascular: Positive for chest pain, Negative for edema, 17:23 Neuro: Positive for dizziness, Negative for altered mental status, Exam: 17:23 Constitutional: This is a well developed, well nourished patient who is awake, alert, rt and in no acute distress. Head/Face: Normocephalic, atraumatic. Chest/axilla: Normal chest wall appearance and motion. Nontender with no deformity. No lesions are appreciated. Cardiovascular: Regular rate and rhythm with a normal S1 and S2. No gallops, murmurs, or rubs. Normal PMI, no JVD. No pulse deficits. Respiratory: Lungs have equal breath sounds bilaterally, clear to auscultation and percussion. No rales, rhonchi or wheezes noted. No increased work of breathing, no retractions or nasal flaring. Abdomen/GI: Soft, non-tender, with normal bowel sounds. No distension or tympany. No guarding or rebound. No evidence of tenderness throughout. Skin: Warm, dry with normal turgor. Normal color with no rashes, no lesions, and no evidence of cellulitis. MS/ Extremity: Pulses equal, no cyanosis. Neurovascular intact. Full, normal range of motion. 17:23 ECG was reviewed by the Attending Physician. Vital Signs: 13:29 BP 157 / 105; Pulse 84; Resp 17; Temp 99.8(O); Pulse Ox 99% on R/A; Weight 74.84 kg; ap3 Height 5 ft. 4 in. ; Pain 8/10; 13:45 BP 142 / 95; Pulse 81; Resp 18; Pulse Ox 98% on R/A; me1 14:00 BP 147 / 106; Pulse 84; Resp 19; Pulse Ox 99% on R/A; me1 15:00 BP 139 / 105; Pulse 78; Resp 19; Pulse Ox 98% on R/A; me1 16:00 BP 139 / 96; Pulse 79; Resp 18; Pulse Ox 99% on R/A; me1 17:00 BP 133 / 98; Pulse 82; Resp 21; Pulse Ox 99% on R/A; me1 13:29 Body Mass Index 28.32 (74.84 kg, 162.56 cm) ap3 13:29 Pain Scale: Adult ap3 MDM: 13:24 Patient medically screened. rt 17:23 Differential diagnosis: Viral syndrome, pneumonia, pneumothorax, acute coronary rt syndrome. HEART Score: History: Highly Suspicious (2), ECG: Non specific repolarization disturbance / LBTB / PM (1), Age: > 45 and < 65 years (1), Risk Factors: > or = 3 Risk factors for atherosclerotic disease (2), Troponin: < or = 1 x Normal Limit (0), Total Score = 6. The patient was given aspirin in the Emergency Department. Data reviewed: vital signs, nurses notes, lab test result(s), EKG, radiologic studies. Consideration of Admission/Observation Patient was admitted/placed on observation. Management of patient was discussed with the following: Hospitalist: Agrees to admit. I considered the following discharge prescriptions or medication management in the emergency department Medications were administered in the Emergency Department. See MAR. Independent interpretation of the following test(s) in the Emergency Department X-Ray: My interpretation is No pneumonia seen on interpretation of x-ray images. Test considered but Not performed: CT: Low suspicion for pulmonary embolism, CT angiogram not indicated. Care significantly affected by the following chronic conditions: Diabetes. Counseling: I had a detailed discussion with the patient and/or guardian regarding the historical points, exam findings, and any diagnostic results supporting the discharge/admit diagnosis, lab results, radiology results, the need for further work-up and treatment in the hospital. Response to treatment: the patient's symptoms have markedly improved after treatment. 04/14 13:33 Order name: Basic Metabolic Panel; Complete Time: 14:54 rt 04/14 13:33 Order name: CBC with Diff; Complete Time: 14:54 rt 04/14 13:33 Order name: LFT's; Complete Time: 14:54 rt 04/14 13:33 Order name: Magnesium; Complete Time: 14:54 rt 04/14 13:33 Order name: NT PRO-BNP; Complete Time: 14:54 rt 04/14 13:33 Order name: Troponin HS; Complete Time: 14:54 rt 04/14 13:58 Order name: COVID-19/FLU A+B; Complete Time: 15:12 bd 04/14 13:33 Order name: XRAY Chest (1 view); Complete Time: 14:54 rt 04/14 13:33 Order name: Cardiac monitoring; Complete Time: 13:39 rt 04/14 13:33 Order name: EKG - Nurse/Tech; Complete Time: 13:39 rt 04/14 13:33 Order name: IV Saline Lock; Complete Time: 13:50 rt 04/14 13:33 Order name: Labs collected and sent; Complete Time: 13:50 rt 04/14 13:33 Order name: O2 Per Protocol; Complete Time: 13:39 rt 04/14 13:33 Order name: O2 Sat Monitoring; Complete Time: 13:39 rt EC:23 Rate is 78 beats/min. Rhythm is regular, Normal Sinus Rhythm with No ectopy. Left axis rt deviation noted. SD interval is normal. QRS interval is normal. QT interval is normal. No Q waves. No ST changes noted. Interpreted by me. Administered Medications: 13:58 Drug: Aspirin PO Chewable Tablet 324 mg PO once; 81 mg tablets x 4 Route: PO; me1 17:01 Follow up: Response: No adverse reaction me1 13:58 Drug: Nitroglycerin Sublingual 0.4 mg Sublingual once; every five minute if needed x3 me1 Route: Sublingual; 17:02 Follow up: Response: No adverse reaction; Pain is unchanged, physician notified me1 13:58 Drug: Meclizine PO 50 mg PO once Route: PO; me1 17:02 Follow up: Response: No adverse reaction me1 Disposition Summary: 04/14/24 16:05 Hospitalization Ordered Notes: Hospitalization Status: Observation rt Provider: Silvio Villeda rt Location: Telemetry/MedSurg (observation) rt Condition: Stable rt Problem: new rt Symptoms: have improved rt Bed/Room Type: Standard rt Room Assignment: 204(04/14/24 16:39) bd Diagnosis - Chest pain, unspecified rt - Covid 19 rt Forms: - Medication Reconciliation Form rt - SBAR form rt - Leadership Thank You Letter rt Signatures: Dispatcher [employer] EDAnny Loco Amanda, RN RN ap3 Odilon Raymond MD MD rt Jessica Gonzalez RN RN me1 Corrections: (The following items were deleted from the chart) 13:34 13:34 BASIC METABOLIC PANEL+C.LAB.BRZ ordered. EDMS EDMS 13:34 13:34 CBC+H.LAB.BRZ ordered. EDMS EDMS 13:34 13:34 HEPATIC FUNCTION+C.LAB.BRZ ordered. EDMS EDMS 13:34 13:34 MAGNESIUM+C.LAB.BRZ ordered. EDMS EDMS 13:34 13:34 PROBNP+C.LAB.BRZ ordered. EDMS EDMS 13:34 13:34 Troponin High Sensitivity+C.LAB.BRZ ordered. EDMS EDMS 13:58 13:58 COVID-19/FLU A+B+MOL.LAB.BRZ ordered. EDMS EDMS 14:00 13:34 Influenza Screen (A \\T\\ B)+BA.LAB.BRZ ordered. EDMS EDMS 14:00 13:34 SARS-COV-2 Antigen Rapid+I.LAB.BRZ ordered. EDMS EDMS 16:39 16:05 rt bd
--- NOTE | 2024-04-14 16:22 | P.HP ---
Certification for Inpatient Patient admitted to: Observation Practitioner: I am a practitioner with admitting privileges, knowledge of patient current condition, hospital course, and medical plan of care. Services: Services provided to patient in accordance with Admission requirements found in Title 42 Section 412.3 of the Code of Federal Regulations Patient History Date of Service: 04/14/24 Reason for admission: Chest pain History of Present Illness: 63-year-old female with a past medical history ADD/ADHD; Atrial Fib; carpal tunnel; Diabetes - NIDDM; Glaucoma; Hypertension; Sleep Apnea; stroke; TIA presents emergency room with chest pain. She reports symptoms started yesterday, left chest wall, feels like pressure, 5 out of 10, relieved with as needed nitro, 2 out of 10. She reports associated nasal congestion, mild nonproductive cough ER evaluation is positive for SARS-CoV-2. No reported shortness of breath, edema, dizziness. plan to admit for atypical chest pain, COVID. ER evaluation BP 157 / 105; Pulse 84; Resp 17; Temp 99.8(O); Pulse Ox 99% on R/A; Weight 74.84 kg; Height 5 ft. 4 in. ; Pain 8/10; laboratory evaluation SARS-CoV-2, PCR positive, 2+ hematuria, mild hypokalemia 3.3, acute kidney injury unknown baseline BUN 23 creatinine 1.27, estimated GFR 48 left shift neutrophils 75.2, chest x-ray IMPRESSION: No acute abnormalities displayed Allergies carisoprodol [From Soma] Allergy (Intermediate, Verified 07/12/16 12:21) SWELLING codeine [Codeine] Allergy (Intermediate, Verified 07/12/16 12:21) SWELLING Heparin Analogues [Heparin Agents] Allergy (Intermediate, Verified 07/12/16 12:21) RASH, SWELLING hydrocodone [Hydrocodone] Allergy (Intermediate, Verified 07/12/16 12:21) SWELLING iodine [Iodine] Allergy (Intermediate, Verified 07/12/16 12:21) SWELLING Penicillins Allergy (Intermediate, Verified 07/12/16 12:21) SWELLING pentazocine lactate [From Talwin] Allergy (Intermediate, Verified 07/12/16 12:21) RASH, SWELLING Shellfish Allergy (Intermediate, Verified 07/12/16 12:21) SWELLING Sulfa (Sulfonamide Antibiotics) [Sulfa(Sulfonamide Antibiotics)] Allergy (Intermediate, Verified 07/12/16 12:21) SWELLING hydralazine Allergy (Verified 07/12/16 12:21) Shortness of breath carisoprodol Allergy (Uncoded 07/12/16 12:21) Unknown codeine Allergy (Uncoded 07/12/16 12:21) Unknown Hydroc Allergy (Uncoded 07/12/16 12:21) Unknown Hydroco Allergy (Uncoded 07/12/16 13:14) Unknown iodine Allergy (Uncoded 07/12/16 12:21) Unknown Home Medications: Amlodipine Besylate 1 tab PO DAILY 02/16/17 Bumetanide 1 mg PO DAILY 02/16/17 Carvedilol 1 tab PO BID 02/16/17 Doxazosin Mesylate [Cardura] 8 mg PO BID 02/16/17 Enalapril Maleate [Vasotec] 1 tab PO BID 02/16/17 Gabapentin [Neurontin] 300 mg PO TID 02/16/17 Metformin HCl [Metformin HCl ER] 750 mg PO BID 02/16/17 Montelukast Sodium [Singulair] 1 tab PO DAILY 02/16/17 Olopatadine HCl [Pazeo] 1 drop EACH EYE BEDTIME 02/16/17 Omeprazole [Prilosec] 40 mg PO DAILY 02/16/17 Quetiapine Fumarate [Seroquel] 200 mg PO BEDTIME 02/16/17 Tramadol HCl [Ultram] 50 mg PO Q4HP PRN 02/16/17 Travoprost (Benzalkonium) [Travatan 0.004% Eye Drop] 1 drop EACH EYE BEDTIME 02/16/17 Oxymetazoline HCl [Afrin] 2 spray IH DAILY PRN 07/13/17 - Past Medical/Surgical History Diabetic: Yes -: HTN -: neuropathy -: CVA 02/2016 -: HTN -: sleep apnea -: DM-2 -: glacoma -: L4-L5 fusion -: lumpectomy bilateral -: partial hysterectomy -: pannusectomy -: carpal tunnel surgery to left - Family History Father -: Heart disease, Hypertension, Diabetes Mother -: Heart disease, Hypertension, Diabetes Brother -: Diabetes Sister -: Heart disease - Social History Alcohol use: No CD- Drugs: No Caffeine use: Yes Review of Systems Per HPI Physical Examination - Physical Exam General: Alert, In no apparent distress, Oriented x3 HEENT: Atraumatic, Normocephalic, Other (Nasal congestion) Neck: Supple Respiratory: Clear to auscultation bilaterally, Normal air movement Cardiovascular: Normal pulses, Regular rate/rhythm Capillary refill: <2 Seconds Gastrointestinal: Soft and benign Musculoskeletal: No clubbing, No swelling Integumentary: No rashes, No breakdown Neurological: Normal speech, Normal strength at 5/5 x4 extr - Studies Laboratory Data (last 24 hrs) 04/14/24 04/14/24 13:49 13:49 WBC 6.70 Hgb 11.3 L Hct 35.0 L Plt Count 218 Sodium 141 Potassium 3.3 L BUN 23 H Creatinine 1.27 H Glucose 88 Magnesium 1.4 L Total Bilirubin 0.4 AST 23 ALT 38 Alkaline Phosphatase 64 Assessment and Plan - Plan Assessment plan SARS-CoV-2 Chest pain Initial troponins negative, trend troponin Lipid panel in the a.m., Paxlovid, as needed analgesics, albuterol inhaler O2 2 L keep sats greater than 92 consider card consult if troponin is elevated, or am ekg is abnormal presents emergency room with chest pain. She reports symptoms started yesterday, left chest wall, feels like pressure, 5 out of 10, relieved with as needed nitro, 2 out of 10. She reports associated nasal congestion, mild nonproductive cough ER evaluation is positive for SARS-CoV-2. No reported shortness of breath, edema, dizziness. plan to admit for atypical chest pain, COVID ER evaluation BP 157 / 105; Pulse 84; Resp 17; Temp 99.8(O); Pulse Ox 99% on R/A; Weight 74.84 kg; Height 5 ft. 4 in. ; Pain 8/10; laboratory evaluation SARS-CoV-2, PCR positive, 2+ hematuria, mild hypokalemia 3.3, acute kidney injury unknown baseline BUN 23 creatinine 1.27, estimated GFR 48 left shift neutrophils 75.2, chest x-ray IMPRESSION: No acute abnormalities displayed EKG normal sinus rhythm 70 ADD/ADHD Atrial Fib carpal tunnel Resume appropriate home Diabetes - NIDDM Accu-Cheks, sliding scale glaucoma Hypertension Sleep Apnea stroke TIA Resume appropriate home Full code DVT Lovenox Cardiac diet Disposition Home independent Discharge Plan: Home - Advance Directives Does patient have a Living Will: No Does patient have a Durable POA for Healthcare: No - Code Status/Comfort Care Code Status: Full Code Critical Care: No Time Spent Managing Pts Care (In Minutes): 55
[2024-04-14] MEDS ORDERED: ALPRAZOLAM 0.25 MG TABLET PO PRN (16:42)
[2024-04-14] MEDS ORDERED: ONDANSETRON 4 MG/2 ML VIAL IV PRN (16:42)
[2024-04-14] MEDS ORDERED: ALBUTEROL INHALER 200 PUFF/6.7 GM IH PRN (16:46)
[2024-04-14] MEDS ORDERED: GUAIFENESIN/CODEINE 5ML UCUP PO PRN (16:49)
[2024-04-14] MEDS: ENOXAPARIN 40 MG/0.4 ML SQ SCH (19:59)
[2024-04-14] MEDS: NA CHLORIDE 0.9% 1,000 ML IV SCH (19:59)
[2024-04-14 20:16] LABS: Sqamous Epithelial None Seen /HPF (None Seen); Urine Bacteria None Seen /HPF (<20); Urine Bilirubin NEGATIVE (Negative); Urine Blood 1+ (Negative); Urine Clarity Clear (Clear); Urine Color Light-Yellow (Yellow); Urine Culture Reflex Order NOT NEEDED; Urine Glucose NEGATIVE (Negative); Urine Ketones NEGATIVE (Negative); Urine Microscopic Reflex YN ORDER UMIC; Urine Nitrite NEGATIVE (Negative); Urine Protein TRACE (Negative); Urine Urobilinogen Normal (Normal); Urine Yeast (Budding) Trace /HPF (None Seen); Urine pH 5.5 (5.0-7.0)
[2024-04-14] MEDS: NIRMATRELVIR/RITONAVIR TABLET PO SCH (22:33)
[2024-04-14 23:16] VITALS: BMI 28.5
[2024-04-14] MEDS: ACETAMINOPHEN 500 MG TAB PO PRN (23:49)
[2024-04-15 02:53] LABS: Absolute Eosinophils 0.1 K/uL (0-0.5); Absolute Lymphocytes (CBC) 1.2 K/uL (0.7-4.9); Absolute Neutrophil 4.3 K/uL (1.8-8.0); Basophils % 0.4 % (0-1.3); Eosinophils % 1.3 % (0-4.4); Hemoglobin 10.4 g/dL (12.0-15.0); Lymphocytes % 18.6 % (15.3-44.8); MCH 29.1 pg (27.0-35.0); MCHC 33.5 g/dL (32.0-36.0); MCV 86.8 fL (80-100); Monocytes % 15.3 % (3.3-12.3); Neutrophils % 64.4 % (41.7-73.7); Nucleated Red Blood Cells % 0.1 % (0-0); Platelets 195 thou/uL (152-406); RBC Red Blood Cell Count 3.57 M/uL (3.86-4.86)
[2024-04-15 03:14] LABS: Anion Gap 6.9 mEq/L (5.0-15.0); Magnesium 1.4 mg/dL (1.6-2.4); Potassium 2.9 mEq/L (3.5-5.1)
[2024-04-15] MEDS: Magnesium Sulfate 2gm IVPB 2 G/50 ML BAG IV ONE (06:15)
--- NOTE | 2024-04-15 07:20 | P.DS ---
Admission Date: 04/14/24 Discharge Date: 04/16/24 Disposition: ROUTINE DISCHARGE Discharge Condition: GOOD Reason for Admission: Chest pain Brief History of Present Illness: 63-year-old female with a past medical history ADD/ADHD; Atrial Fib; carpal tunnel; Diabetes - NIDDM; Glaucoma; Hypertension; Sleep Apnea; stroke; TIA presents emergency room with chest pain. She reports symptoms started yesterday, left chest wall, feels like pressure, 5 out of 10, relieved with as needed nitro, 2 out of 10. She reports associated nasal congestion, mild nonproductive cough ER evaluation is positive for SARS-CoV-2. No reported shortness of breath, edema, dizziness. plan to admit for atypical chest pain, COVID. ER evaluation BP 157 / 105; Pulse 84; Resp 17; Temp 99.8(O); Pulse Ox 99% on R/A; Weight 74.84 kg; Height 5 ft. 4 in. ; Pain 8/10; laboratory evaluation SARS-CoV-2, PCR positive, 2+ hematuria, mild hypokalemia 3.3, acute kidney injury unknown baseline BUN 23 creatinine 1.27, estimated GFR 48 left shift neutrophils 75.2, chest x-ray IMPRESSION: No acute abnormalities displayed - Physical Exam General: Alert, In no apparent distress, Oriented x3 HEENT: Atraumatic, Normocephalic, Other (Nasal congestion) Neck: Supple Respiratory: Clear to auscultation bilaterally, Normal air movement Cardiovascular: Normal pulses, Regular rate/rhythm Capillary refill: <2 Seconds Gastrointestinal: Soft and benign Musculoskeletal: No clubbing, No swelling Integumentary: No rashes, No breakdown Neurological: Normal speech, Normal strength at 5/5 x4 extr Hospital Course: 63 year-old patient presented with chest pain. Was noted to have covid. Condition improved with Iv fluids, antiviral, inhaler. Patient tolerating diet, stable for discharge to home with follow-up appointment with primary care physician. PROBLEM: chest pain serial troponin negative hypokalemia, replaced per protocol repeat 4.2 COVID-, discharged home on Paxlovid, remainder of dose Acute kidney injury unknown baseline, improved with IV fluid Rad/Lab/Micro: Serial troponins negative Potassium 2.9 replaced per protocol repeat 4.2 Continue home medicines as previously prescribed GOAL: Clear understanding of disease process INSTRUCTIONS: Physician Discharge Instructions: -Follow-up with PCP in 1 to 2 weeks -Please call Dr. Villeda at [phone] if any questions regarding hospital stay -Please call nursing station at [phone] if any nursing or medication questions -Return to the emergency room if symptoms worsen Diet: ADA, low sodium Activity: Fall precautions Vital Signs/Physical Exam: Temp Pulse Resp BP Pulse Ox 97.6 F 66 18 114/67 96 04/15/24 04:00 04/15/24 04:00 04/15/24 04:00 04/15/24 04:00 04/15/24 04:00 Laboratory Data at Discharge: WBC 6.70 thou/uL (4.3-10.9) 04/15/24 02:21 Hgb 10.4 g/dL (12.0-15.0) L 04/15/24 02:21 Hct 31.0 % (36.0-45.0) L 04/15/24 02:21 Plt Count 195 thou/uL (152-406) 04/15/24 02:21 Sodium 141 mEq/L (136-145) 04/15/24 02:21 Potassium 2.9 mEq/L (3.5-5.1) L 04/15/24 02:21 BUN 22 mg/dL (7-18) H 04/15/24 02:21 Creatinine 1.24 mg/dL (0.55-1.02) H 04/15/24 02:21 Glucose 69 mg/dL (74-106) L 04/15/24 02:21 Magnesium 1.4 mg/dL (1.6-2.4) L 04/15/24 02:21 Total Bilirubin 0.4 mg/dL (0.2-1.0) 04/14/24 13:49 AST 23 U/L (15-37) 04/14/24 13:49 ALT 38 U/L (13-56) 04/14/24 13:49 Alkaline Phosphatase 64 U/L (45-117) 04/14/24 13:49 Triglycerides 31 mg/dL (<150) 04/15/24 02:21 Cholesterol 100 mg/dL (<200) 04/15/24 02:21 HDL Cholesterol 53 mg/dL (40-60) 04/15/24 02:21 Cholesterol/HDL Ratio 1.89 04/15/24 02:21 Home Medications: Acetaminophen [Tylenol Extra Strength] 500 mg PO DIRECTED PRN 04/15/24 Aspirin 81 mg PO DAILY 04/15/24 Atorvastatin Calcium 40 mg PO DAILY 04/15/24 Fluticasone [Flonase 50MCG Nasal [place]*] 2 sprays NS DAILY 04/15/24 Losartan/Hydrochlorothiazide [Losartan-Hctz 100-25 mg Tab] 1 each PO DAILY 04/15/24 Nitroglycerin 0.4 mg SL DIRECTED 04/15/24 Rivaroxaban [Xarelto] 20 mg PO DAILY 04/15/24 Sotalol HCl [Betapace*] 80 mg PO BID 04/15/24 Nirmatrelvir/Ritonavir [Paxlovid 150-100 mg Pack] 2 tab PO BID 4 Days #8 tab 04/16/24 Nitrofuran Macro [Macrobid] 100 mg PO BID 5 Days #10 cap 04/16/24 predniSONE [Deltasone] 20 mg PO DAILY #5 tab 04/16/24 New Medications: Nitrofuran Macro [Macrobid] 100 mg PO BID 5 Days #10 cap Nirmatrelvir/Ritonavir [Paxlovid 150-100 mg Pack] 2 tab PO BID 4 Days #8 tab predniSONE [Deltasone] 20 mg PO DAILY #5 tab Physician Discharge Instructions: 63 year-old patient presented with chest pain. Was noted to have covid. Condition improved with Iv fluids, antiviral, inhaler. Patient tolerating diet, stable for discharge to home with follow-up appointment with primary care physician. Follow-up with cardiology outpatient PROBLEM: chest pain serial troponin negative hypokalemia, replaced per protocol replaced Rad/Lab/Micro: Serial troponins negative Potassium 2.9 replaced per protocol Continue home medicines as previously prescribed GOAL: Clear understanding of disease process INSTRUCTIONS: Physician Discharge Instructions: -Follow-up with PCP in 1 to 2 weeks -Please call Dr. Villeda at [phone] if any questions regarding hospital stay -Please call nursing station at [phone] if any nursing or medication questions -Return to the emergency room if symptoms worsen Diet: ADA, low sodium Activity: Fall precautions Diet: AHA Activity: Fall precautions Followup: Heriberto Joshi MD [Primary Care Provider] - Time spent managing pt's care (in minutes): 55
--- NOTE | 2024-04-15 07:29 | P.PN ---
Date of Service: 04/15/24 Subjective Admitted for COVID, 99% on room air, no complaint of chest pain Review of Systems Per HPI Physical Examination - Vital Signs Reviewed - Physical Exam General: Alert, In no apparent distress, Oriented x3 HEENT: Other (Nasal congestion) Respiratory: Equal unlabored Cardiovascular: Normal pulses, Regular rate/rhythm Capillary refill: <2 Seconds Gastrointestinal: Soft and benign Musculoskeletal: No clubbing, No swelling Integumentary: No rashes, No breakdown Neurological: Normal speech, Normal strength at 5/5 x4 extr Assessment and Plan - Plan Assessment plan SARS-CoV-2 Chest pain Initial troponins negative, trend troponin Lipid panel in the a.m., Paxlovid, as needed analgesics, albuterol inhaler O2 2 L keep sats greater than 92 consider card consult if troponin is elevated, or am ekg is abnormal presents emergency room with chest pain. She reports symptoms started yesterday, left chest wall, feels like pressure, 5 out of 10, relieved with as needed nitro, 2 out of 10. She reports associated nasal congestion, mild nonproductive cough ER evaluation is positive for SARS-CoV-2. No reported shortness of breath, edema, dizziness. plan to admit for atypical chest pain, COVID ER evaluation BP 157 / 105; Pulse 84; Resp 17; Temp 99.8(O); Pulse Ox 99% on R/A; Weight 74.84 kg; Height 5 ft. 4 in. ; Pain 8/10; laboratory evaluation SARS-CoV-2, PCR positive, 2+ hematuria, mild hypokalemia 3.3, acute kidney injury unknown baseline BUN 23 creatinine 1.27, estimated GFR 48 left shift neutrophils 75.2, chest x-ray IMPRESSION: No acute abnormalities displayed EKG normal sinus rhythm 70 Hypokalemia Trend electrolytes replace. ADD/ADHD Atrial Fib carpal tunnel Resume appropriate home Diabetes - NIDDM Accu-Cheks, sliding scale glaucoma Hypertension Sleep Apnea stroke TIA Resume appropriate home Full code DVT Lovenox Cardiac diet Disposition Home independent
[2024-04-15] MEDS: KCL 20 MEQ/100 mL IVPB 20 MEQ/100 ML BAG IV SCH ×2 (08:00)
[2024-04-15] MEDS: POTASSIUM 25 MEQ EFFERV TAB PO ONE (09:42)
--- NOTE | 2024-04-15 12:44 | EKG ---
Test Date: 2024-04-14 Test Time: 13:34:28 [employer] Operator: MEASUREMENT RESULTS: Intervals: Rate: 78 CA: 176 QRSD: 80 QT: 368 QTc: 419 [place]: P: 59 CA: 176 QRS: -51 T: 30 INTERPRETIVE STATEMENTS: Normal sinus rhythm Left axis deviation Anterior infarct, age undetermined Abnormal ECG Compared to ECG 07/13/2017 10:48:59 Left-axis deviation now present Left ventricular hypertrophy no longer present Myocardial infarct finding still present Electronically Signed On 04-15-24 12:41:51 CDT by Jh Ponce
[2024-04-15 17:08] LABS: Anion Gap 4.2 mEq/L (5.0-15.0); Magnesium 2.2 mg/dL (1.6-2.4); Potassium 4.2 mEq/L (3.5-5.1)
[2024-04-15] MEDS: CHLORASEPTIC LOZENGES PO PRN (21:13)
[2024-04-16] MEDS: NITROFURAN MACRO 100 MG CAP PO SCH (08:29)
[2024-04-16 08:59] VITALS: BP 140/89; TEMP 97.9
[2024-04-16 09:18] VITALS: O2SAT 99
== END 2024-04-16 12:15 | disposition home or self-care (01) | DRG 178 ==
LOC: ER 13:17 → ERHOLD 16:27 → 2ND 17:02
PROVIDERS: ADMIT Hospitalist; ATTEND Hospitalist
DX: U07.1 COVID-19 (principal); N17.9 Acute kidney failure, unspecified; F90.9 Attention-deficit hyperactivity disorder, unspecified type; I48.91 Unspecified atrial fibrillation; Z79.01 Long term (current) use of anticoagulants; E11.40 Type 2 diabetes mellitus with diabetic neuropathy, unspecified; Z79.4 Long term (current) use of insulin; G47.30 Sleep apnea, unspecified; Z86.73 Personal history of transient ischemic attack (TIA), and cerebral infarction without residual deficits; E87.6 Hypokalemia; H40.9 Unspecified glaucoma; Z90.10 Acquired absence of unspecified breast and nipple
CPT/HCPCS: 0240U; 36415; 71045; 80048; 80061; 80076; 81001; 83735; 83880; 84484; 85025; 93005; 94760; 99285; J1650; J3475; J3480; J3535; J7030; J8499; J8597